=== PATIENT | male | born 1950 | race Caucasian/White ===

== ENCOUNTER 2017-09-07 10:27 | Emergency (ER) | payer MEDICARE, OTHER ==
[2017-09-07 10:48] LABS: ADD MAN DIFF? NO
[2017-09-07 10:50] LABS: BASO # 0.1 x10^3/uL (0.0-0.2); BASO % 1 % (0-3); EOS # 0.4 x10^3/uL (0.0-0.7); EOS % 4 % (0-3); HEMATOCRIT 40.7 % (39.0-53.0); HEMOGLOBIN 13.5 g/dL (13.0-17.5); LYMPH # 2.6 x10^3/uL (1.0-4.8); LYMPH % 27 % (24-48); MEAN CORPUSCULAR HEMOGLOBIN 28 pg (25-35); MEAN CORPUSCULAR HGB CONC 33 g/dL (31-37); MEAN CORPUSCULAR VOLUME 84 fL (79-100); MONO # 0.7 x10^3/uL (0.0-1.1); MONO % 7 % (0-9); NEUT # 6.1 x10^3uL (1.8-7.7); NEUT % 62 % (31-73); PLATELET COUNT 356 x10^3/uL (140-400); RED BLOOD COUNT 4.87 x10^6/uL (4.30-5.70); RED CELL DISTRIBUTION WIDTH 15.2 % (11.5-14.5); WHITE BLOOD COUNT 9.9 x10^3/uL (4.0-11.0)
[2017-09-07 11:01] LABS: ANION GAP 11 (6-14); BLOOD UREA NITROGEN 19 mg/dL (8-26); BUN/CREATININE RATIO 12 (6-20); CALCIUM 9.4 mg/dL (8.5-10.1); CARBON DIOXIDE 26 mmol/L (21-32); CHLORIDE 103 mmol/L (98-107); CREATININE 1.6 mg/dL (0.7-1.3); GFR 43.5; GLUCOSE 117 mg/dL (70-99); POTASSIUM 4.2 mmol/L (3.5-5.1); SODIUM 140 mmol/L (136-145)
[2017-09-07 11:07] LABS: ALBUMIN 3.3 g/dL (3.4-5.0); ALBUMIN/GLOBULIN RATIO 0.7 (1.0-1.7); ALK PHOS 118 U/L (46-116); ALT (SGPT) 21 U/L (16-63); AST (SGOT) 17 U/L (15-37); LIPASE 137 U/L (73-393); TOTAL BILIRUBIN 0.9 mg/dL (0.2-1.0); TOTAL PROTEIN 7.9 g/dL (6.4-8.2)
[2017-09-07 11:09] LABS: LACTIC ACID 1.8 mmol/L (0.4-2.0)
[2017-09-07] MEDS: IV NORMAL SALINE 1000ML BAG 1,000 ML IV (11:18)
[2017-09-07] MEDS: MORPHINE SULFATE 4 MG/ML DISP.SYRIN. IV (11:18)
[2017-09-07 11:28] LABS: BILIRUBIN,URINE NEGATIVE (NEG); CLARITY,URINE CLEAR; COLOR,URINE YELLOW; GLUCOSE,URINE NEGATIVE (NEG); NITRITE,URINE NEGATIVE (NEG); PH,URINE 5.5; PROTEIN,URINE NEGATIVE (NEG-TRACE); UROBILINOGEN,URINE 0.2 mg/dL (0.2 mg/dL)
[2017-09-07 11:38] LABS: BACTERIA,URINE FEW /HPF (0-FEW); RBC,URINE 0 /HPF (0-2)
[2017-09-07 12:14] LABS: NEG OBC FOB NEG; POS OBC FOB POS
[2017-09-07 12:18] LABS: FECAL OB PT POSITIVE (NEG)
[2017-09-07] MEDS: metroNIDAZOLE 500 MG TABLET PO (13:36)
[2017-09-07] MEDS: CIPROFLOXACIN HCL 250 MG TABLET. PO (13:36)
== END 2017-09-07 13:39 | disposition home or self-care (01) ==
LOC: ER 10:27
DX: K57.30 Diverticulosis of large intestine without perforation or abscess without bleeding (principal); F41.9 Anxiety disorder, unspecified; E11.9 Type 2 diabetes mellitus without complications; K21.9 Gastro-esophageal reflux disease without esophagitis; Z87.891 Personal history of nicotine dependence; Z90.5 Acquired absence of kidney; Z85.53 Personal history of malignant neoplasm of renal pelvis
CPT/HCPCS: 36415; 74176; 80053; 81001; 82274; 83605; 83690; 85025; 93005; 96361; 96374; 99285-25; J2270; J7030

== ENCOUNTER → 2018-07-11 | Outpatient (CLI) | payer OTHER ==
[2017-09-07 13:29] VITALS: BP 145/68
[~2018-07-11] MED LIST: CIPR500T94 PO; METF500T16 PO; METR500T PO; OMEP20CA5 PO; VENL75CA PO
--- NOTE | 2018-07-11 13:09 | KCIC ---
EXAM: RIGHT UPPER QUADRANT ULTRASOUND. HISTORY: Abdominal pain, nausea and decreased appetite. COMPARISON: 09/07/2017. FINDINGS: Sonographic evaluation of the right upper quadrant was performed. The liver appears normal in parenchymal echotexture. There are no focal lesions. The gallbladder is unremarkable without evidence of stones, wall thickening or pericholecystic fluid. There is no sonographic Oakes sign. The common duct measures 3 mm. The pancreas is mostly obscured. Very limited images of the pancreatic head reveal no gross abnormality. The right kidney is surgically absent. There is no clear recurrent mass in the nephrectomy bed. The visualized portions of the abdominal aorta and inferior vena cava are grossly patent and normal in caliber. IMPRESSION: 1. Limited visualization. The pancreas is mostly obscured. No cause for pain is identified. 2. Status post right nephrectomy. Electronically signed by: Jie Iqbal MD (07/11/2018 1:06 PM) [facility]
== END | disposition home or self-care (01) ==
LOC: KCIC US 07:32
PROVIDERS: ATTEND Family Medicine
DX: R10.84 Generalized abdominal pain (principal); R11.0 Nausea; Z90.5 Acquired absence of kidney
CPT/HCPCS: 76705

== ENCOUNTER → 2019-07-26 | Outpatient (CLI) | payer BC ==
[2017-09-07 13:29] VITALS: BP 145/68
[~2019-07-26] MED LIST changes: +IOHEXOL 240 MG/ML 50ML VIAL. PO ONE; +IOHEXOL 300 MG/ML 100ML VIAL. IV ONE
--- NOTE | 2019-07-26 16:41 | KCIC ---
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 TECHNIQUE: After the oral and intravenous administration of contrast, contiguous, 5 mm axial sections were obtained through the abdomen and pelvis. 100 cc of Omnipaque 300 were administered intravenously during this examination. One or more of the following individualized dose reduction techniques were utilized for this study: 1. Automated exposure control. 2. Adjustment of the mA and/or kV according to patient size. 3. Use of iterative reconstruction technique. FINDINGS: Comparison is made to a CT scan of the abdomen and pelvis dated 09/07/2017. Scattered atherosclerotic plaque formation is seen involving the thoracic aorta. The thoracic aorta is mildly tortuous but tapers normally. The heart is normal in size. Partially calcified right hilar lymph node is seen. A 4.3 cm partially calcified subcarinal lymph node is noted. A enlarged lymph node is seen within the inferior medial right hilum which measures 2.3 cm in greatest diameter. Enlarged lymph nodes are seen within the mediastinum which measure 2.8 to 5.2 cm in size. No axillary lymphadenopathy is seen. A mass is seen within the medial aspect of the right upper lobe which measures 4.7 x 4.5 x 4.0 cm in craniocaudal, transverse and AP dimensions. This is consistent with a pulmonary metastasis. A 4 mm noncalcified nodule is seen within the right lower lobe which is unchanged previous examination. No additional pulmonary metastasis is seen. Small calcified granulomas are seen involving both lower lobes. The 1.4 and 1.9 cm metastasis within the left lower lobe seen on the previous study have resolved. Linear bands of scarring are involving the left upper lobe and left lower lobe. No pneumothorax or pleural effusion is seen. No pleural effusion or pneumothorax is noted. The liver, spleen, pancreas, adrenal glands and left kidney are within normal limits. The Patient is post right nephrectomy. No residual/recurrent mass is seen. Atherosclerotic calcification of the abdominal aorta is noted. The abdominal aorta tapers normally. The gallbladder is contracted. No free fluid or free air is seen within the abdomen. No retroperitoneal lymphadenopathy is seen. Images through pelvis demonstrate the urinary bladder distended with urine. Multiple diverticula are seen involving the sigmoid colon. Multiple diverticula are seen involving the descending colon. No inflammatory changes are seen adjacent fat. Fluid is noted. The prostate gland is enlarged likely related to BPH. No pelvic or inguinal lymphadenopathy is seen. Minimal S-shaped curvature of the thoracolumbar spine is seen. Degenerative changes are seen involving the thoracic and throughout the lumbar spine along with both hips. IMPRESSION: 1. The metastasis seen involving the left lower lobe on the patient's previous CT scan of the abdomen and pelvis have resolved. 2. 4.7 cm mass is seen involving the right upper lobe consistent with a metastasis. Right hilar and mediastinal lymphadenopathy is seen as discussed above. 3. There is no evidence of metastatic disease involving the abdomen or pelvis. Electronically signed by: Charlie Ren MD (07/26/2019 4:39 PM) [id number]
== END ==
LOC: KCIC CT 13:04
PROVIDERS: ATTEND Family Medicine
DX: C64.1 Malignant neoplasm of right kidney, except renal pelvis (principal); I70.0 Atherosclerosis of aorta; K82.0 Obstruction of gallbladder; K57.30 Diverticulosis of large intestine without perforation or abscess without bleeding; J98.4 Other disorders of lung; R59.9 Enlarged lymph nodes, unspecified
CPT/HCPCS: 71260; 74177; Q9966; Q9967

== ENCOUNTER 2020-07-18 11:27 | Emergency (ER) | payer BC ==
[~2020-07-18] VITALS: Ht 172.7 cm; Wt 79.5 kg
[~2020-07-18 11:27] MED LIST changes: -IOHEXOL 240 MG/ML 50ML VIAL. PO ONE; -IOHEXOL 300 MG/ML 100ML VIAL. IV ONE
--- NOTE | 2020-07-18 11:58 | PHYS DOC ---
Past Medical History Past Medical History: Anxiety, Cancer, Diabetes-Type II, GERD Additional Past Medical Histor: Kidney CA, Lung CA (JANET BURNETT LEGAL ADVISOR) Past Surgical History: Other Additional Past Surgical Histo: lower back, right nephrectomy secondary to renal cancer (JANET BURNETT LEGAL ADVISOR) Smoking Status: Current Some Day Smoker Alcohol Use: None Drug Use: Marijuana (JANET BURNETT LEGAL ADVISOR) General Adult EDM: Chief Complaint: SHORTNESS OF BREATH HPI: HPI: Patient is a 70 year old male who presents with this morning began having chest tightness, shortness of air, increased cough, bilateral feet purple with mottling going up the legs to the knees. He is 100% on room air. He does have lung cancer and kidney cancer. He has had a right nephrectomy. Does have anxiety and GERD. He is a Wednesday smoker. He has had stents placed. No extremity swelling. Denies syncope, dizziness, abdominal pain, nausea, vomiting, fever. Patient states with his DPOA in the room that if he were to code that we can try to resuscitate him once but he does not want to be intubated. Patient currently rating his distress 6 out of 10. (JANET BURNETT LEGAL ADVISOR) Review of Systems: Review of Systems: Constitutional: Denies fever or chills. [] Eyes: Denies change in visual acuity. [] HENT: Denies nasal congestion or sore throat. [] Respiratory: + cough or +shortness of breath. [] Cardiovascular: + chest pain or denies edema. [] GI: Denies abdominal pain, nausea, vomiting, bloody stools or diarrhea. [] : Denies dysuria. [] Musculoskeletal: Denies back pain or joint pain. [] Integument: Denies rash. [] Neurologic: Denies headache, focal weakness or sensory changes. [] Endocrine: Denies polyuria or polydipsia. [] Lymphatic: Denies swollen glands. [] Psychiatric: Denies depression or anxiety. [] (JANET BURNETT LEGAL ADVISOR) Heart Score: C/O Chest Pain: Yes HEART Score for Chest Pain: HEART Score for Chest Pain Response (Comments) Value History Moderately Suspicious 1 ECG Normal 0 Age > 65 2 Risk Factors >3 Risk Factors or Hx CAD 2 Troponin >1-<3x Normal Limit 1 Total 6 Risk Factors: Risk Factors: DM, Current or recent (<one month) smoker, HTN, HLP, family history of CAD, obesity. Risk Scores: Score 0 - 3: 2.5% MACE over next 6 weeks - Discharge Home Score 4 - 6: 20.3% MACE over next 6 weeks - Admit for Clinical Observation Score 7 - 10: 72.7% MACE over next 6 weeks - Early Invasive Strategies (JANET BURNETT APRN) Allergies: Allergies: Allergies Coded Allergies Type Severity Reaction Last Updated Verified No Known Drug Allergies 03/05/13 No (JANET BURNETT APRN) Physical Exam: PE: Constitutional: Well developed, well nourished, no acute distress, non-toxic appearance. [] HENT: Normocephalic, atraumatic, bilateral external ears normal, oropharynx moist, no oral exudates, nose normal. [] Eyes: PERRLA, EOMI, conjunctiva normal, no discharge. [] Neck: Normal range of motion, no tenderness, supple, no stridor. [] Cardiovascular:Heart rate regular rhythm, no murmur [] Lungs & Thorax: Bilateral breath sounds diminished to auscultation [] Abdomen: Bowel sounds normal, soft, no tenderness, no masses, no pulsatile masses. [] Skin: Warm, dry, no erythema, no rash. Bilateral feet purple, bilateral lower legs up to knees mottling [] Back: No tenderness, no CVA tenderness. [] Extremities: No tenderness, no cyanosis, no clubbing, ROM intact, no edema. [] Neurologic: Alert and oriented X 3, normal motor function, normal sensory function, no focal deficits noted. [] Psychologic: Affect normal, judgement normal, mood normal. [] (JANET BURNETT APRN) EKG: EK and read by Dr. Hoyt is sinus rhythm and no STEMI (JANET BURNETT APRN) Radiology/Procedures: Radiology/Procedures: [] Impression: [facility] [address] [place] [address] IMAGING REPORT Signed PATIENT: AYESHA ROJAS EACCOUNT: [id number] : 1950 LOCATION: ER AGE: 70 SEX: M EXAM STATUS: REG ER ORD. PHYSICIAN: JANET BURNETT APRN REASON: SOA, LUNG CANCER PROCEDURE: PORTABLE CHEST 1V INDICATION: Reason: SOA, LUNG CANCER / Spl. Instructions: / History: COMPARISON: July 2019 FINDINGS: Single view of chest obtained. There is a large masslike structure identified at the right upper medial chest which correlates with the patient's previously identified mass within the lung and mediastinum at this location. There is some blunting of the left costophrenic angle which can be seen with pleural thickening or small pleural effusion. Degenerative changes of shoulder and spine. Hyperexpansion with disorganization pulmonary markings bilaterally is seen. IMPRESSION: * Large masslike structure is again seen at the right upper chest likely corresponding to the patient's previously seen large mass within the right upper lung as well as the mediastinum. Electronically signed by: Yahaira Verduzco MD (07/18/2020 12:38 PM) [id number] DICTATED and SIGNED BY: YAHAIRA VERDUZCO MD DATE: 07/18/20 [id number] [facility] [address] [place], [place] [id number] IMAGING REPORT Signed PATIENT: AYESHA ROJAS EACCOUNT: [id number] : 1950 LOCATION: ER AGE: 70 SEX: M EXAM STATUS: REG ER ORD. PHYSICIAN: JANET BURNETT APRN REASON: lung ca, increased soa PROCEDURE: PULMONARY PERFUSION IMG PARTIC Indication: Reason: lung ca, increased soa / Spl. Instructions: no vent during covid per radiologist / History: Technique: Static images are obtained of both lungs following IV administration of 5.5 mCi of 99 M technetium MAA. Comparison: Chest x-ray from same day Findings: Large perfusion defect is seen involving the majority of the right lung with the exception of the right lung base. There is also patchy perfusion defects seen involving the left lung. Impression: 1. Bilateral perfusion defects are identified right greater than left. Cannot assess whether this is matched or mismatched given lack of ventilation images. This examination is therefore on the border between intermediate and high probability for pulmonary embolus. Electronically signed by: Yahaira Verduzco MD (07/18/2020 2:44 PM) [id number] DICTATED and SIGNED BY: YAHAIRA VERUDZCO MD DATE: 07/18/20 [id number] (JANET BURNETT APRN) Course & Med Decision Making: Course & Med Decision Making Pertinent Labs and Imaging studies reviewed. (See chart for details) See HPI. Alert and oriented x4. Ambulatory with a very slow because he is very short of breath. He is tripoding. Lungs are diminished bilaterally. 100% on oxygen. Speaks in full broken sentences due to shortness of breath. Bilateral lower legs mottling. Bilateral feet are purple. Afebrile. No extremity edema. Answers my questions appropriately. DPOA is in the room with the patient. [] Does not meet Sirs criteria. Given 1L NS, Zosyn. I have ordered a VQ scan to check for PE. Patient states that he does not want to be admitted he was to go home. He states that he "understands if he goes home he could possibly ." He states that " I am ready to ". Patient states that he is vaccinated for Covid. Patient is educated that his signs and symptoms is progressive worsening of his whole status. Patient is okay with no further treatment. The VQ scan has not been done and he is fine with that. VQ scan is done during and is showing a high probability of bilateral pulmonary emboli. The patient and his daughter are told this. We have talked about blood thinners and as his PT INR is already very high I would need to either keep the patient in the hospital so he can be monitored on blood thinners or I will need to make a phone call to his primary care provider. The patient states " no just signed me out." The patient states either way partial the result will be " ". The patient again states that he does not want to stay and that he understands by going home but there is a risk of and/or disability. I have spoken to Dr. Hoyt concerning this patient and the care plan. He agrees. (JANET BURNETT APRN) Bonita Disclaimer: Bonita Disclaimer: This electronic medical record was generated, in whole or in part, using a voice recognition dictation system. (JANET BURENTT APRN) Departure Departure Impression: Primary Impression: Shortness of breath Additional Impressions: Lactic acid acidosis Bilateral pulmonary embolism Disposition: LEFT AGAINST MEDICAL ADVICE Condition: STABLE Referrals: NANO HECK MD (PCP) Attending Signature Attending Signature I have reviewed the PA/SENIOR SUSTAINABILITY CONSULTANT's note and plan of care. I was available for consultation as needed during the patient's visit in the emergency department. I agree with the clinical impression, plan, and disposition. (SERAFIN HOYT DO) JANET BURNETT APRN Jul 18, 2020 11:58 SERAFIN HOYT DO Jul 19, 2020 14:36
--- NOTE | 2020-07-18 12:12 | NUR ---
Patient unwilling to allow this RT to draw arterial blood gas. Emperatriz Vasques, TATTOO IDENTIFIER informed, Venous gas ordered.
[2020-07-18 12:29] LABS: BASO % 0 % (0-3); EOS # 0.2 x10^3/uL (0.0-0.7); EOS % 2 % (0-3); HEMATOCRIT 30.3 % (39.0-53.0); HEMOGLOBIN 9.8 g/dL (13.0-17.5); LYMPH # 1.5 x10^3/uL (1.0-4.8); LYMPH % 21 % (24-48); MEAN CORPUSCULAR HEMOGLOBIN 25 pg (25-35); MEAN CORPUSCULAR HGB CONC 32 g/dL (31-37); MEAN CORPUSCULAR VOLUME 77 fL (79-100); MONO # 0.6 x10^3/uL (0.0-1.1); MONO % 8 % (0-9); NEUT % 68 % (31-73); PLATELET COUNT 459 x10^3/uL (140-400); RED BLOOD COUNT 3.96 x10^6/uL (4.30-5.70); RED CELL DISTRIBUTION WIDTH 17.4 % (11.5-14.5); WHITE BLOOD COUNT 7.3 x10^3/uL (4.0-11.0)
--- NOTE | 2020-07-18 12:40 | RAD ---
INDICATION: Reason: SOA, LUNG CANCER / Spl. Instructions: / History: COMPARISON: July 2019 FINDINGS: Single view of chest obtained. There is a large masslike structure identified at the right upper medial chest which correlates with the patient's previously identified mass within the lung and mediastinum at this location. There is some blunting of the left costophrenic angle which can be seen with pleural thickening or sm all pleural effusion. Degenerative changes of shoulder and spine. Hyperexpansion with disorganization pulmonary markings bilaterally is seen. IMPRESSION: * Large masslike structure is again seen at the right upper chest likely corresponding to the patien t's previously seen large mass within the right upper lung as well as the mediastinum. Electronically signed by: Cleve Olivares MD (07/18/2020 12:38 PM) [id number]
[2020-07-18 12:41] LABS: CALCIUM 9.1 mg/dL (8.5-10.1); CREATININE 1.5 mg/dL (0.7-1.3); GFR 46.4; POTASSIUM 4.9 mmol/L (3.5-5.1)
[2020-07-18 12:48] LABS: ALBUMIN 2.4 g/dL (3.4-5.0); ALBUMIN/GLOBULIN RATIO 0.5 (1.0-1.7); TOTAL PROTEIN 7.2 g/dL (6.4-8.2)
[2020-07-18] MEDS ORDERED: IV NORMAL SALINE 1000ML BAG 1,000 ML IV ONE (13:15)
[2020-07-18] MEDS ORDERED: PIPERACILLIN/TAZOBACTAM 3.375 GM in IV NORMAL SALINE 50ML 50 ML IV ONE (13:15)
[2020-07-18 13:34] LABS: PROTHROMBIN TIME PATIENT 16.9 SEC (11.7-14.0)
[2020-07-18 13:40] LABS: D-DIMER 1.54 ug/mlFEU (0.00-0.50)
--- NOTE | 2020-07-18 14:46 | RAD ---
Indication: Reason: lung ca, increased soa / Spl. Instructions: no vent during covid per radiologist / History: Technique: Static images are obtained of both lungs following IV administration of 5.5 mCi of 99 M te chnetium MAA. Comparison: Chest x-ray from same day Findings: Large perfusion defect is seen involving the majority of the right lung with the exception of the rig ht lung base. There is also patchy perfusion defects seen involving the left lung. Impression: 1. Bilateral perfusion defects are identified right greater than left. Cannot assess whether this is matched or mismatched given lack of ventilation images. This examination is therefore on the border b etween intermediate and high probability for pulmonary embolus. Electronically signed by: Cleve Olivares MD (07/18/2020 2:44 PM) [id number]
[2020-07-18 14:54] VITALS: BP 125/74
== END 2020-07-18 15:00 | disposition left against medical advice (07) ==
LOC: ER 11:27
DX: I26.99 Other pulmonary embolism without acute cor pulmonale (principal); R06.02 Shortness of breath; E87.2 Acidosis; R07.89 Other chest pain; E11.9 Type 2 diabetes mellitus without complications; K21.9 Gastro-esophageal reflux disease without esophagitis; F17.200 Nicotine dependence, unspecified, uncomplicated
CPT/HCPCS: 71045; 78580; 80053; 83605; 83880; 84484; 85025; 85379; 85610; 85730; 87040; 93005; 96365; 99285; A9540; J2543; J7030; 36415